=== PATIENT | male | born 1990 ===

== ENCOUNTER 2016-12-28 01:35 | Emergency (ER) | payer OTHER ==
[2016-12-28 01:36] VITALS: BMI 27.3
[2016-12-28 01:46] VITALS: BP 144/77; PULSE 80; RESP 15; TEMP 98.1; O2SAT 97
--- NOTE | 2016-12-28 01:55 | ED PDOC ---
Arrival/HPI - General Chief Complaint: Lower Extremity Problem/Injury Time Seen by Provider: 12/28/16 01:47 Historian: Patient - History of Present Illness Narrative History of Present Illness (Text): 12/28/16 02:00 Dwight Alfaro is a 26 year old male who presents to the emergency department for evaluation of right foot pain. Patient notes that pain, which he has had for the past year, worsened today after waking up. Pain is sharp, intermittent, worse when walking, improves with continued walking, located in focal area on sole of foot between toes and heel. He was evaluated 3 months prior by an Emergency department doctor at work and was diagnosed with plantar fasciitis. Was advised at that time to elevate his right leg and take pain medication as needed. Patient takes Ibuprofen to chronically control pain, but has not taken any today. Denies any fever, chills, headache, dizziness, chest pain, shortness of breath, numbness/weakness of extremity or any other complaints at this time. Time/Duration: Other (1 year chronic pain worsening tonight ) Symptom Onset: Gradual Symptom Course: Intermittent Severity Level: Mild Activities at Onset: Light Context: Home Past Medical History - Provider Review Nursing Documentation Reviewed: Yes - Tetanus Immunization Tetanus Immunization: Unknown - Reproductive Currently : No - Neurological Hx Vertigo: Yes - Musculoskeletal/Rheumatological Other/Comment: Chronic Left Leg Pain. - Psychiatric Hx Substance Use: No - Surgical History Hx Appendectomy: Yes Family/Social History - Physician Review Nursing Documentation Reviewed: Yes Family/Social History: No Known Family HX Smoking Status: Never Smoked Hx Alcohol Use: No Hx Substance Use: No Allergies/Home Meds Allergies/Adverse Reactions: Allergies No Known Allergies Allergy (Verified 07/02/16 14:08) Review of Systems - Physician Review All systems were reviewed & negative as marked: Yes - Review of Systems Constitutional: Normal. absent: Fatigue, Fevers Respiratory: Normal. absent: SOB, Cough Cardiovascular: Normal. absent: Chest Pain Gastrointestinal: Normal Genitourinary Male: Normal Musculoskeletal: Other (Right foot pain ) Neurological: Normal. absent: Headache, Dizziness Physical Exam - Physical Exam Narrative Physical Exam (Text): Constitutional: No acute distress. Head: Normocephalic. Atraumatic. Eyes: PERRL. ENT: Moist mucous membranes. Neck: Supple. Cardiovascular: Regular rate. Chest: No tenderness. Respiratory: Clear to auscultation bilaterally. GI: Soft. Nontender. Nondistended. Back: No CVA tenderness. Musculoskeletal: No tenderness or swelling of extremities. Skin: No rash. Neurologic: Alert, no focal deficit. Vital Signs Reviewed: Yes Vital Signs Temp Pulse Resp BP Pulse Ox 12/28/16 01:42 98.1 F 80 15 144/77 97 Temperature: Afebrile Blood Pressure: Normal Pulse: Regular Respiratory Rate: Normal Appearance: Positive for: Well-Appearing, Non-Toxic, Comfortable Pain Distress: None Mental Status: Positive for: Alert and Oriented X 3 Medical Decision Making ED Course and Treatment: 12/28/16 02:16 Impression: A 26 year old male with a history of plantar fasciitis presents to the emergency department for worsening right foot pain. Progress Notes: On reevaluation the patient feels better and is in no acute distress. I have discussed the results and plan to f/u with Ortho with the patient, who expresses understanding. Patient given the opportunity to ask question, all questions were answered and there is agreement with the plan to discharge the patient home. Patient is stable for discharge. Patient was instructed to follow up with physician/clinic in 1-2 days or return if symptoms persist/ worsen or new concerning symptoms arise. - Medication Orders Current Medication Orders: Discontinued Medications Ketorolac Tromethamine (Toradol) 60 mg IM STAT STA Stop: 12/28/16 01:53 Last Admin: 12/28/16 02:03 Dose: 60 MG IM Administration Charges Document 12/28/16 02:03 RD (Rec: 12/28/16 02:03 RD [id number]) Injection Site MAR Injection Site Left Deltoid Charges for Administration # of IM Administrations 1 - Scribe Statement The provider has reviewed the documentation as recorded by the Juli Santiago Provider Attestation: All medical record entries made by the Juli were at my direction and personally dictated by me. I have reviewed the chart and agree that the record accurately reflects my personal performance of the history, physical exam, medical decision making, and the department course for this patient. I have also personally directed, reviewed, and agree with the discharge instructions and disposition. Disposition/Present on Arrival - Present on Arrival Any Indicators Present on Arrival: No History of DVT/PE: No History of Uncontrolled Diabetes: No Urinary Catheter: No History of Decub. Ulcer: No History Surgical Site Infection Following: None - Disposition Have Diagnosis and Disposition been Completed?: Yes Diagnosis: Plantar fasciitis Disposition: HOME/ ROUTINE Disposition Time: 01:52 Patient Plan: Discharge Condition: STABLE Discharge Instructions (ExitCare): Plantar Fasciitis (ED) Referrals: Rodrick Adkins MD [Staff Provider] - Follow up with primary Forms: WORK NOTE
== END 2016-12-28 02:03 | disposition home or self-care (01) ==
LOC: ED 01:35
DX: M72.2 Plantar fascial fibromatosis (principal)
CPT/HCPCS: 96372; 99283; J1885

== ENCOUNTER 2018-09-28 22:42 | Emergency (ER) | payer OTHER ==
[2018-09-28 23:13] VITALS: BMI 30.4
[2018-09-28 23:15] VITALS: BP 134/99; PULSE 87
[2018-09-28 23:48] VITALS: TEMP 97.7
--- NOTE | 2018-09-28 23:54 | ED PDOC ---
Arrival/HPI <Prasad Hill - Last Filed: 09/29/18 00:52> - General Historian: Patient - History of Present Illness Narrative History of Present Illness (Text): 09/28/18 23:52 28-year-old male with no significant past medical history, complains of dry cough > 1 week. Otherwise: (-) fever, (-) chills, (-) chest pain, (-) dyspnea, (-) hemoptysis, (-) upper back pain, (-) travel, (-) V/D, (-) rash, (-) recent prolonged immobility. PMD None <Selena Moore PA-C - Last Filed: 09/29/18 01:34> - General Chief Complaint: Cough, Cold, Congestion Time Seen by Provider: 09/28/18 23:11 Past Medical History - Tetanus Immunization Tetanus Immunization: Unknown - Cardiac Hx Cardiac Disorders: No - Pulmonary Hx Respiratory Disorders: No - Neurological Hx Neurological Disorder: Yes Hx Vertigo: Yes - HEENT Hx HEENT Disorder: Yes Hx Glaucoma: Yes - Renal Hx Renal Disorder: No - Endocrine/Metabolic Hx Endocrine Disorders: No - Hematological/Oncological Hx Blood Disorders: No - Integumentary Hx Dermatological Disorder: No - Musculoskeletal/Rheumatological Hx Musculoskeletal Disorders: No Hx Unsteady Gait: No - Gastrointestinal Hx Gastrointestinal Disorders: No - Genitourinary/Gynecological Hx Genitourinary Disorders: No - Psychiatric Hx Psychophysiologic Disorder: No Hx Substance Use: No - Surgical History Hx Appendectomy: Yes - Anesthesia Hx Anesthesia: Yes <Selena Moore PA-C - Last Filed: 09/29/18 01:34> Family/Social History Family/Social History: No Known Family HX Smoking Status: Never Smoked Hx Alcohol Use: No Hx Substance Use: No <Selena Moore PA-C - Last Filed: 09/29/18 01:34> Allergies/Home Meds <Prasad Hill - Last Filed: 09/29/18 00:52> <Selena Moore PA-C - Last Filed: 09/29/18 01:34> Allergies/Adverse Reactions: Allergies No Known Allergies Allergy (Verified 09/29/18 00:07) Review of Systems - Review of Systems Constitutional: absent: Fatigue, Fevers ENT: absent: Sore Throat, Rhinorrhea, Sinus Congestion Respiratory: Cough. absent: SOB Cardiovascular: absent: Chest Pain, Palpitations Gastrointestinal: absent: Abdominal Pain, Nausea, Vomiting Genitourinary Male: absent: Dysuria, Frequency Musculoskeletal: absent: Arthralgias, Back Pain, Neck Pain Skin: absent: Rash, Pruritis Neurological: absent: Headache, Dizziness <Selena Moore PA-C - Last Filed: 09/29/18 01:34> Physical Exam Vital Signs Temp Pulse Resp BP Pulse Ox 09/28/18 23:48 97.7 F 09/28/18 23:14 87 20 134/99 H 95 <Prasad Hill - Last Filed: 09/29/18 00:52> Vital Signs Temp Pulse Resp BP Pulse Ox 09/28/18 23:48 97.7 F 09/28/18 23:14 87 20 134/99 H 95 Temperature: Afebrile Blood Pressure: Normal Pulse: Regular Respiratory Rate: Normal Appearance: Positive for: Well-Appearing, Non-Toxic, Comfortable Pain Distress: None Mental Status: Positive for: Alert and Oriented X 3 - Systems Exam Head: Present: Atraumatic, Normocephalic Pupils: Present: PERRL Extroacular Muscles: Present: EOMI Conjunctiva: Present: Normal Ears: Present: Normal, NORMAL TM Mouth: Present: Moist Mucous Membranes Pharnyx: Present: Normal. No: ERYTHEMA, EXUDATE Neck: Present: Normal Range of Motion. No: Meningeal Signs, Lymphadenopathy Respiratory/Chest: Present: Clear to Auscultation, Good Air Exchange. No: Respiratory Distress, Accessory Muscle Use Cardiovascular: Present: Regular Rate and Rhythm, Normal S1, S2. No: Murmurs Abdomen: No: Tenderness, Distention, Peritoneal Signs Back: Present: Normal Inspection Upper Extremity: Present: Normal Inspection. No: Cyanosis, Edema Lower Extremity: Present: Normal Inspection. No: Edema Neurological: Present: GCS=15, CN II-XII Intact, Speech Normal, Motor Func G rossly Intact, Normal Sensory Function Skin: Present: Warm, Dry, Normal Color. No: Rashes Psychiatric: Present: Alert, Oriented x 3, Normal Insight, Normal Concentration <Selena Moore PA-C - Last Filed: 09/29/18 01:34> Medical Decision Making - RAD Interpretation Radiology Orders: 09/28/18 23:40 CHEST TWO VIEWS (PA/LAT) [RAD] Stat <SergioPrasad - Last Filed: 09/29/18 00:52> ED Course and Treatment: 09/28/18 23:53 Plan : - CXR CXR : NAD. Advised to follow up with referral in 1-2 days without fail. Advised to take medication as prescribed. Return to the emergency room at any time for any new or worsening symptoms. Patient states he fully agrees with and understands discharge instructions. States that he agrees with the plan and disposition. Verbalized and repeated discharge instructions and plan. I have given the patient opportunity to ask any additional questions. - RAD Interpretation Radiology Orders: 09/28/18 23:40 CHEST TWO VIEWS (PA/LAT) [RAD] Stat <Selena Moore PA-C - Last Filed: 09/29/18 01:34> - PA / SPEED RUNNER / Resident Statement FRANCISCO JAVIER has reviewed & agrees with the documentation as recorded. FRANCISCO JAVIER has examined the patient and agrees with the treatment plan. <Prasad Hill - Last Filed: 09/29/18 00:52> - PA / SPEED RUNNER / Resident Statement FRANCISCO JAVIER has reviewed & agrees with the documentation as recorded. <Selena Moore PA-C - Last Filed: 09/29/18 01:34> Disposition/Present on Arrival <Prasad Hill - Last Filed: 09/29/18 00:52> - Present on Arrival Any Indicators Present on Arrival: No History of DVT/PE: No History of Uncontrolled Diabetes: No Urinary Catheter: No History of Decub. Ulcer: No History Surgical Site Infection Following: None - Disposition Have Diagnosis and Disposition been Completed?: Yes Disposition Time: 01:00 Patient Plan: Discharge <Selena Moore PA-C - Last Filed: 09/29/18 01:34> - Disposition Diagnosis: Acute bronchitis Disposition: HOME/ ROUTINE Patient Problems: Current Active Problems Problem Status Onset Acute bronchitis Acute Condition: STABLE Discharge Instructions (ExitCare): Acute Bronchitis, Adult (DC) Additional Instructions: Thank you for letting us take care of you today. You were treated for acute bronchitis. The emergency medical care you received today was directed at your acute symptoms. If you were prescribed any medication, please fill it and take as directed. It may take several days for your symptoms to resolve. Return to the Emergency Department if your symptoms worsen, do not improve, or if you have any other problems. Please contact your doctor in 2 days for re-evaluation and follow up / or call one of the physicians/clinics you have been referred to that are listed on the Patient Visit Information form that is included in your discharge packet. Bring any paperwork you were given at discharge with you along with any medications you are taking to your follow up visit. Our treatment cannot replace ongoing medical care by a primary care provider (PCP) outside of the emergency department. Thank you for allowing the [facility] team to be part of your care today. If you had an X-Ray : A Radiologist will review the ED reading if any change in treatment is needed we will contact you. Prescriptions: Albuterol 0.083% [Albuterol Sulfate 3 Ml] 3 ml IH Q4 #100 neb Guaifenesin [Adult Tussin Chest Congestion] 200 mg PO Q6H PRN #200 ml PRN Reason: Cough Nebulizer [Aeroeclipse II] 1 each MC DAILY #1 each Referrals: [facility] [place] - Follow up with primary Forms: [employer] (Turkish), WORK NOTE
[2018-09-29 01:59] VITALS: RESP 18; O2SAT 99
--- NOTE | 2018-09-29 08:55 | RAD ---
Date of service: 09/29/2018 HISTORY: cough COMPARISON: 08/04/2017 TECHNIQUE: Chest PA and lateral FINDINGS: LUNGS: No active pulmonary disease. PLEURA: No significant pleural effusion identified. No pneumothorax apparent. CARDIOVASCULAR: No aortic atherosclerotic calcification present. Normal cardiac size. No pulmonary vascular congestion. OSSEOUS STRUCTURES: No significant abnormalities. VISUALIZED UPPER ABDOMEN: Normal. OTHER FINDINGS: None. IMPRESSION: No active disease.
== END 2018-09-29 01:58 | disposition home or self-care (01) ==
LOC: ED 22:42
DX: J20.9 Acute bronchitis, unspecified (principal)